=== PATIENT | female | born 1995 | race Caucasian/White ===

== ENCOUNTER 2016-08-09 08:30 | Emergency (ER) | payer OTHER ==
[~2016-08-09] VITALS: Ht 167.6 cm; Wt 47.2 kg
[~2016-08-09 08:30] MED LIST: LAMOTRIGINE25 M3 PO
--- NOTE | 2016-08-09 08:45 | ED GENERAL ADULT ---
History of Present Illness General Chief Complaint: General Adult Stated Complaint: "IM FEELING FAINT" Source: patient Exam Limitations: no limitations Allergies Coded Allergies: NO KNOWN ALLERGIES (08/06/15) Triage Note: PT TO ED S/P DID SOME COKE "WHICH I NEVER DO", ALSO I'M ON PRESCRIBED KLONOPIN, SMOKED SOME POT, SO "I'M WORRIED". PT STATING CHEST/BACK PAIN ON AND OFF. Triage Nurses Notes Reviewed? yes : No Patient currently breastfeeds: No HPI: 20 yo previously healthy F presenting with palpitations. Patient was up all night last night celebrating with friends, used cocaine 10-15 lines total (lase use @ 5:00), some marijuana use (prior to coming to ED), also took 1/4 pill of xanax. Intermittent palpitations with mild chest pressure and SOB last night, now resolved, feels "spacey" currently, no other complaints. Patient doesn't typicalaly use cocaine, "I wanted to make sure my heart and lungs are OK." Denies fevers, chills, cough, LE swelling/pain, neurologic Sx. (CAIT MORELAND,JESSE) Vital Signs & Intake/Output Vital Signs & Intake/Output Vital Signs Date Time Temp Pulse Resp B/P Pulse O2 O2 Flow FiO2 Ox Delivery Rate 08/09 1031 97.8 84 20 108/59 96 Room Air 08/09 0844 98.0 91 20 116/77 99 Room Air Room Air Reconcile Medications Cholecalciferol (Vitamin D3) 1,000 UNIT TABLET 1 TAB PO DAILY SUPPLEMENT ( Reported) Hydroxyzine Pamoate 25 MG CAPSULE 1 CAP PO TID PRN UNKNOWN (Reported) Lamotrigine 25 MG TABLET 2 TAB PO QPM MENTAL HEALTH (Reported) (DUNCAN MORELAND,NORM Marks) Past History Travel History Traveled to [place] past 21 day No Medical History Any Pertinent Medical History? 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 Yes (JESSE CHAVIRA MD) Review of Systems Review of Systems Constitutional: Reports: no symptoms. EENTM: Reports: no symptoms. Respiratory: Reports: short of breath. Cardiovascular: Reports: chest pain, palpitations. Denies: edema, orthopena, peripheral edema. GI: Reports: no symptoms. Genitourinary: Reports: no symptoms. Musculoskeletal: Reports: no symptoms. Skin: Reports: no symptoms. Neurological/Psychological: Reports: no symptoms. Hematologic/Endocrine: Reports: no symptoms. Immunologic/Allergic: Reports: no symptoms. All Other Systems: Reviewed and Negative (CAIT MORELAND,JESSE) Physical Exam Physical Exam General Appearance: no apparent distress, alert, awake Eyes: Bilateral: normal appearance. Ears, Nose, Throat: normal ENT inspection Neck: normal inspection, supple Respiratory: normal breath sounds Cardiovascular: regular rate/rhythm Gastrointestinal: normal bowel sounds, soft, non-tender Back: normal inspection Extremities: normal inspection, normal range of motion Neurologic/Psych: no motor/sensory deficits, awake, oriented x 3 Core Measures ACS in differential dx? Yes CVA/TIA Diagnosis: No Severe Sepsis Present: No Septic Shock Present: No (JESSE CHAVIRA MD) Progress Differential Diagnoses I considered the following diagnoses in my evaluation of the patient: [ Cocaine side effect, arrhythmia, PTX, PNA, pericarditis] Initial ED EKG: normal axis, normal sinus rhythm (JESSE CHAVIRA MD) Plan of Care: Orders Procedure Date/time Status EKG 08/09 0844 Active Physician MDM: 20 yo F presenting with intermittent chest pain, palpitations, SOB associated with significant cocaine use. VSS, normal HR and room air O2 sat, cardiopulmonary exam as above. DDx: Cocaine side effect, anxiety, arrhymia, cocaine side effect, PTX, low concern for ACS, PE. ECG sinus thrym, TWI in V1, otherwise unremarkable, no prior for comparison. CXR without focal consolidation or airspace disease. On re-examination patient resting comfortably, no reoccurance of Sx in ED. Given reassuring history, physical, ECG, CXR D/Bishop with reutrn precautions, plan to f/u with PMD. D/W Dr. Gordon. (JESSE CHAVIRA MD) Departure Departure Disposition: HOME OR SELF CARE Condition: Stable Clinical Impression Primary Impression: Palpitations Referrals: PATIENT HAS NO PRIMARY CARE DR (PCP/Family) Additional Instructions: Return to the ED for any new, worsening, or concerning symptoms. Follow up with your primary care provider. Departure Forms: Customer Survey General Discharge Information (CAIT MORELAND,JESSE) Resident Co-Sign Statement Statement: ED Attending supervision documentation- [X] I saw and evaluated the patient. I have also reviewed all the pertinent lab results and diagnostic results. I agree with the findings and the plan of care as documented in the Resident's documentation. Pt declined crisis eval.. [] I have reviewed the ED Record and agree with the Resident's documentation. [] Additions or exceptions (if any) to the Resident's note and plan are summarized below: [] (DUNCAN MORELAND,NORM Marks) Critical Care Note Critical Care Note Critical Care Time: non-applicable (JESSE CHAVIRA MD)
[2016-08-09] MEDS ORDERED: HYDROXYZINE PAM25 M2 PO (09:43)
[2016-08-09] MEDS ORDERED: VITAMIN D31000 UNI2 PO (09:44)
--- NOTE | 2016-08-09 09:50 | RADIOLOGY REPORT ---
EXAMINATION: XR CHEST CLINICAL INFORMATION: Chest pain. Evaluate for pneumothorax. COMPARISON: None TECHNIQUE: 2 views of the chest were obtained. FINDINGS: The extreme right lung apex is not included on this examination. The lungs are hyperinflated and clear with no pneumothorax identified. The heart is not enlarged. IMPRESSION: Hyperinflation. No pneumothorax is seen; the extreme right lung apex is not included on this radiograph. No focal consolidation or pleural effusion.
[2016-08-09 10:31] VITALS: BP 108/59
== END 2016-08-09 10:45 ==
LOC: ERH 08:30
DX: R00.2 Palpitations (principal); R07.89 Other chest pain
CPT/HCPCS: 93005; 93010